=== PATIENT | female | born 1985 | race African-American/Black ===

== ENCOUNTER 2021-11-25 11:26 | Emergency (ER) | payer OTHER ==
[2021-11-25] MEDS ORDERED: ALBUTEROL SO4 HFA INHALER IH ONE ×2 (11:35→11:49)
[2021-11-25 11:59] VITALS: BP 123/80; PULSE 74; TEMP 98.3; BMI 27.0
== END 2021-11-25 12:22 | disposition home or self-care (01) ==
LOC: FER 11:26
DX: J20.9 Acute bronchitis, unspecified (principal)
CPT/HCPCS: 71046-TC-FY; 81025; 87804; 99284-25; C9803-CS; U0003; U0005

== ENCOUNTER 2022-04-29 12:48 | Emergency (ER) | payer BC, OTHER ==
[2022-04-29 13:01] VITALS: BP 122/76; PULSE 115; RESP 15; TEMP 98; BMI 27.6
[2022-04-29] MEDS ORDERED: SODIUM CHLORIDE 0.9% 500 ML INFUS.BAG IV ONE (13:07)
[2022-04-29] MEDS ORDERED: ONDANSETRON 4 MG/2 ML VIAL IVPB ONE (13:09)
[2022-04-29 13:36] LABS: HEMATOCRIT 41.2 % (32.4-45.2); HEMOGLOBIN 14.2 G/dL (10.7-15.3); MCH 29.5 pg (25.7-33.7); MCHC 34.5 g/dl (32.0-36.0); MEAN CELL VOLUME 85.5 fl (80-96); MEAN PLT VOLUME 7.7 fl (7.5-11.1); PLATELET COUNT 240.6 10^3/uL (134-434); RBC 4.82 10^6/uL (3.60-5.2); RDW 14.2 % (11.6-15.6); WHITE BLOOD COUNT 5.6 10^3/uL (4.0-10.8)
[2022-04-29 13:36] LABS: HCG,QUALITATIVE URINE Negative
[2022-04-29 13:43] LABS: EPITHELIAL CELLS MODERATE /hpf; URINE MUCUS 2+
[2022-04-29 13:43] LABS: ALBUMIN 3.8 g/dl (3.4-5.0); BILIRUBIN,TOTAL 0.7 mg/dl (0.2-1); CALCIUM 9.4 mg/dl (8.5-10); CREATININE 0.7 mg/dl (0.55-1.3); MAGNESIUM 1.7 mg/dL (1.8-2.4); TOT PROT 7.3 g/dl (6.4-8.2)
[2022-04-29 14:04] LABS: PLATELET ESTIMATE ADEQUATE
== END 2022-04-29 15:33 | disposition home or self-care (01) ==
LOC: FER 12:48
PROC: 3E033NZ Introduction of Analgesics, Hypnotics, Sedatives into Peripheral Vein, Percutaneous Approach (ICD-10-PCS; principal; 2022-04-29)
DX: R00.2 Palpitations (principal)
CPT/HCPCS: 0241U-QW; 36415; 80053; 81003; 81015; 83735; 84443; 84703; 85027; 93005; 99284-25

== ENCOUNTER 2022-11-07 19:38 | Emergency (ER) | payer OTHER, BC ==
[2022-11-07] MEDS ORDERED: LIDOCAINE 5% TOPICAL PATCH TP ONE (19:54)
[2022-11-07] MEDS ORDERED: CYCLOBENZAPRINE HCL 10 MG TABLET (FP) PO ONE (19:55)
[2022-11-07] MEDS ORDERED: KETOROLAC TROMETHAMINE 60 MG/2 ML VIAL IM ONE (19:55)
[2022-11-07 20:02] VITALS: BP 119/74; PULSE 80; RESP 16; TEMP 98.5; BMI 27.6
[2022-11-07] MEDS ORDERED: KETOROLAC TROMETHAMINE 60 MG/2 ML VIAL ONE (20:03)
[2022-11-07] MEDS ORDERED: LIDOCAINE 5% TOPICAL PATCH ONE (20:04)
[2022-11-07] MEDS ORDERED: CYCLOBENZAPRINE HCL 5 MG TABLET ONE (20:04)
[2022-11-07] MEDS ORDERED: LIDOCAINE PATCH REMOVAL MC SCH (22:00)
== END 2022-11-07 20:30 | disposition home or self-care (01) ==
LOC: FER 19:38
DX: M54.42 Lumbago with sciatica, left side (principal)
CPT/HCPCS: 99284-25

== ENCOUNTER 2024-08-08 15:54 | Inpatient (IN) | payer OTHER ==
[2024-08-08 16:53] LABS: BASO % 0.5 % (0-2.0); EOS % 0.1 % (0-4.5); HEMATOCRIT 33.3 % (32.4-45.2); MCH 23.3 pg (25.7-33.7); MCHC 30.1 g/dl (32.0-36.0); MEAN CELL VOLUME 77.2 fl (80-96); MONO % 7.7 % (3.8-10.2); NEUT % 53.7 % (42.8-82.8); PLATELET COUNT 200 10^3/uL (134-434); RBC 4.31 M/mm3 (3.60-5.2); RDW 17.8 % (11.6-15.6); WHITE BLOOD COUNT 4.6 K/mm3 (4.0-10.0)
[2024-08-08] MEDS: DEXTROSE 5%-LACTATED RINGERS 1,000 ML IV SCH (17:00)
[2024-08-08 17:01] LABS: INR 0.93 (0.83-1.09); PROTHROMBIN TIME (PATIENT) 10.7 SEC (9.7-13.0)
[2024-08-08 17:04] LABS: ACTIVATED PTT 27.3 SECONDS (25.2-36.5)
[2024-08-08 17:13] LABS: POTASSIUM 3.8 mmol/L (3.5-5.1)
[2024-08-08 17:15] LABS: ALBUMIN 2.5 g/dl (3.4-5.0); BLOOD UREA NITROGEN 8.4 mg/dL (7-18); CALCIUM 8.9 mg/dL (8.5-10.1)
[2024-08-08 17:19] LABS: CREATININE 0.7 mg/dL (0.55-1.3)
[2024-08-08 17:20] LABS: BILIRUBIN,TOTAL 0.4 mg/dL (0.2-1); TOT PROT 6.3 g/dl (6.4-8.2)
[2024-08-08 17:41] VITALS: BMI 27.9
[2024-08-08] MEDS: MISOPROSTOL 25 MCG TABLET (COMPOUNDED BY PHARMACY) PV SCH (18:45)
[2024-08-08 19:28] LABS: URINE APPEARANCE CLEAR; URINE BILIRUBIN NEGATIVE (NEGATIVE); URINE COLOR YELLOW; URINE GLUCOSE (UA) NEGATIVE (NEGATIVE); URINE KETONE NEGATIVE (NEGATIVE); URINE LEUK ESTERASE NEGATIVE (NEGATIVE); URINE NITRITE NEGATIVE (NEGATIVE); URINE PROTEIN 2+ (NEGATIVE); URINE UROBILINOGEN 0.2 mg/dL (0.2-1.0)
[2024-08-08 19:57] LABS: EPI CELLS 7.9 /uL (0-25.1); HYALINE CASTS 0.41 /uL (0-3.1); URINE BACTERIA 102 /uL (0-1359); URINE RBC 34.2 /uL (0-23.9); URINE WBC 9.8 /uL (0-25.8)
[2024-08-08] MEDS ORDERED: LABETALOL HCL 200 MG TABLET (FP) ONE (21:59)
[2024-08-08] MEDS: LABETALOL HCL 200 MG TABLET (FP) PO ONE (22:05)
[2024-08-09] MEDS ORDERED: OXYTOCIN 20 UNITS in 0.9% NS 20 UNIT/1,000 ML INFUS.BAG IV ONE ×2 (06:18→08:05)
[2024-08-09] MEDS ORDERED: IBUPROFEN 600 MG TABLET (FP) PO ONE (07:15)
[2024-08-09] MEDS: IBUPROFEN 600 MG TABLET (FP) PO PRN (07:15)
[2024-08-09] MEDS ORDERED: BENZOCAINE 28 GM HEMORRHOIDAL OINTMENT TP PRN (07:22)
[2024-08-09] MEDS ORDERED: BENZOCAINE 20% 57 GM BOTTLE TP PRN (07:22)
[2024-08-09] MEDS ORDERED: ACETAMINOPHEN 325 MG TABLET (FP) PO PRN (07:22)
[2024-08-09] MEDS ORDERED: LABETALOL HCL 200 MG TABLET (FP) ONE (08:05)
[2024-08-09] MEDS: LABETALOL HCL 200 MG TABLET (FP) PO SCH (08:08)
[2024-08-09] MEDS: OXYTOCIN 20 UNITS in 0.9% NS 20 UNIT/1,000 ML INFUS.BAG IV SCH (08:09)
[2024-08-09] MEDS: ENOXAPARIN NA (PORCINE) 40 MG/0.4 ML DISP.SYRIN SQ SCH (11:59)
[2024-08-09] MEDS: WITCH HAZEL 50% (TUCKS) 40 PAD/JAR PAD TP PRN (21:56)
[2024-08-10 07:39] LABS: BASO % 0.2 % (0-2.0); EOS % 0.3 % (0-4.5); HEMATOCRIT 25.1 % (32.4-45.2); HEMOGLOBIN 7.8 GM/dL (10.7-15.3); LYMPH % 31.5 % (8-40); MCH 24.1 pg (25.7-33.7); MEAN CELL VOLUME 77.6 fl (80-96); MONO % 6.4 % (3.8-10.2); NEUT % 61.6 % (42.8-82.8); PLATELET COUNT 156 10^3/uL (134-434); RBC 3.23 M/mm3 (3.60-5.2); RDW 17.1 % (11.6-15.6); WHITE BLOOD COUNT 6.7 K/mm3 (4.0-10.0)
[2024-08-10] MEDS: FERROUS SO4 325 MG TABLET (FP) PO SCH (09:28)
[2024-08-10] MEDS: DOCUSATE SODIUM 100 MG CAPSULE (FP) PO SCH (17:33)
[2024-08-10] MEDS: HYDROXYCHLOROQUINE SO4 200 MG TABLET (FP) PO SCH (18:13)
[2024-08-10 18:16] VITALS: RESP 18
[2024-08-11] MEDS: HYDROXYCHLOROQUINE SO4 200 MG TABLET (FP) PO SCH (07:06)
[2024-08-11] MEDS: morphine SULFATE 4 MG/ML VIAL IVPB ONE (07:07)
[2024-08-11 11:33] VITALS: BP 143/90; PULSE 82; TEMP 98
== END 2024-08-11 14:30 | disposition home or self-care (01) | DRG 806 ==
LOC: JDEL 15:54 → JLDR 16:31 → J3W 08-09 09:10
PROVIDERS: ADMIT Obstetrics & Gynecology Maternal & Fetal Medicine; ATTEND Obstetrics & Gynecology Maternal & Fetal Medicine
PROC: 10E0XZZ Delivery of Products of Conception, External Approach (ICD-10-PCS; principal; 2024-08-09)
PROC: 0HQ9XZZ Repair Perineum Skin, External Approach (ICD-10-PCS; 2024-08-09)
PROC: 0W8NXZZ Division of Female Perineum, External Approach (ICD-10-PCS; 2024-08-09)
DX: O10.92 Unspecified pre-existing hypertension complicating childbirth (principal); D68.9 Coagulation defect, unspecified; Z37.0 Single live birth; O99.12 Other diseases of the blood and blood-forming organs and certain disorders involving the immune mechanism complicating childbirth; O70.0 First degree perineal laceration during delivery; O62.3 Precipitate labor; O99.891 Other specified diseases and conditions complicating pregnancy; M32.9 Systemic lupus erythematosus, unspecified; Z3A.38 38 weeks gestation of pregnancy
CPT/HCPCS: 36415; 59409; 80053; 81003; 85025; 85610; 85730; 86780; 86850; 86900; 86901; 88307-TC